=== PATIENT | male | born 1970 | race African-American/Black ===

== ENCOUNTER 2019-04-07 13:51 | Emergency (ER) | payer OTHER ==
[~2019-04-07] VITALS: Ht 177.8 cm; Wt 115.7 kg
[2019-04-07 14:08] VITALS: BP_SYST 146
[2019-04-07] MEDS ORDERED: ASPIRIN 81 MG TAB.CHEW PO ONE (14:30)
[2019-04-07 14:53] LABS: BASOPHILS # (AUTO) 0.1 K/uL (0.0-0.2); BASOPHILS % (AUTO) 0.7 % (0.0-2.0); EOSINOPHILS # (AUTO) 0.1 K/uL (0.0-0.4); EOSINOPHILS % (AUTO) 0.8 % (0.0-4.0); HEMATOCRIT 43.4 % (36-54); HEMOGLOBIN 14.3 g/dL (14.0-18.0); LYMPHOCYTES # (AUTO) 3.6 K/uL (1.0-5.5); LYMPHOCYTES % (AUTO) 36.2 % (20.5-51.5); MEAN CORPUSCULAR HEMOGLOBIN 27 pg (27-31); MEAN CORPUSCULAR HGB CONC 33 % (32-36); MEAN CORPUSCULAR VOLUME 83 fL (79.0-98.0); MONOCYTES # (AUTO) 0.6 K/uL (0.0-1.0); MONOCYTES % (AUTO) 5.8 % (1.7-9.3); NEUTROPHILS # (AUTO) 5.6 K/uL (1.8-7.7); NEUTROPHILS % (AUTO) 56.5 % (40.0-70.0); PLATELET COUNT (AUTO) 220 K/uL (130-430); RED BLOOD CELL COUNT(AUTO) 5.27 MIL/uL (4.2-6.2); RED CELL DISTRIBUTION WIDTH 14.1 % (9.0-15.0); WHITE BLOOD COUNT (AUTO) 9.8 K/uL (4.8-10.8)
--- NOTE | 2019-04-07 15:00 | NUR ---
Patient to ER bed 3 to gown for evaluation. Side rails up.
[2019-04-07 15:04] LABS: ANION GAP 3 (5-15); CALCIUM 8.8 mg/dL (8.4-11.0); CHLORIDE 105 mmol/L (98-107); CREATININE 1.03 mg/dL (0.55-1.30); GLUCOSE 123 mg/dL (70-99); POTASSIUM 3.4 mmol/L (3.5-5.1); SODIUM SERUM 137 mmol/L (136-145); UREA NITROGEN, BLOOD 10 mg/dL (8-21)
[2019-04-07 15:05] LABS: GFR AFRICAN AMERICAN 100 mL/min (>90)
[2019-04-07 15:12] LABS: ALANINE AMINOTRANSFERASE 63 U/L (12-78); ALBUMIN 3.7 g/dL (3.4-4.8); ASPARTATE AMINOTRANSFERASE 25 U/L (10-37); TOTAL BILIRUBIN 0.4 mg/dL (0.0-1.0)
--- NOTE | 2019-04-07 15:20 | NUR ---
pt arrives from home. Reports feeling SOB since this Saturday. EKG done in the triage. No other associated symptoms.
--- NOTE | 2019-04-07 15:30 | NUR ---
ER at bedside examining patient.
--- NOTE | 2019-04-07 15:40 | NUR ---
pt getting a CXR at the bedside.
[2019-04-07] MEDS ORDERED: PANTOPRAZOLE SODIUM 40 MG TAB PO ONE (16:00)
--- NOTE | 2019-04-07 16:20 | NUR ---
medicated the pt w/ Protonix per md fierro.
[2019-04-07 16:31] VITALS: BP_SYST 146
--- NOTE | 2019-04-07 16:34 | NUR ---
Patient given written and verbal discharge instructions and verbalizes understanding. ER MD discussed with patient the results and treatment provided. Patient in stable condition. ID arm band removed. Rx of Protonix given. Patient educated on pain management and to follow up with PMD. Pain Scale 0/10. Opportunity for questions provided and answered. Medication side effect fact sheet provided.
== END 2019-04-07 16:31 | disposition home or self-care (01) ==
LOC: SED 13:51
DX: K21.9 Gastro-esophageal reflux disease without esophagitis (principal); I10 Essential (primary) hypertension
CPT/HCPCS: 36415; 71045; 80053; 83880; 84484; 85025; 93005; 99284